=== PATIENT | male | born 1990 | race African-American/Black ===

== ENCOUNTER 2021-07-17 09:02 | Emergency (ER) | payer OTHER ==
[~2021-07-17] VITALS: Ht 157.5 cm; Wt 63.5 kg
[2021-07-17 09:12] VITALS: TEMP 97.6
[2021-07-17 12:50] VITALS: BP 121/71
== END 2021-07-17 12:50 | disposition home or self-care (01) ==
LOC: ED 09:02
PROC: 2W38X1Z Immobilization of Right Upper Extremity using Splint (ICD-10-PCS; principal; 2021-07-17)
PROC: 0RSJXZZ Reposition Right Shoulder Joint, External Approach (ICD-10-PCS; 2021-07-17)
DX: M24.411 Recurrent dislocation, right shoulder (principal); X50.0XXA Overexertion from strenuous movement or load, initial encounter; Y92.89 Other specified places as the place of occurrence of the external cause
CPT/HCPCS: 96360; 96375; 99285; J2704